=== PATIENT | female | born 1985 | race Caucasian/White ===

== ENCOUNTER 2017-02-16 16:39 | Emergency (ER) | payer MEDICAID ==
--- NOTE | 2017-02-16 17:37 | RAD ---
THREE VIEWS LEFT FOOT: History: Left foot pain, patient injured left foot two months ago. Technique: AP, lateral and oblique views obtained. FINDINGS: Images demonstrate no evidence of left foot fracture, subluxations, or bony lesions. IMPRESSION: Normal three views left foot. POS: [facility]
== END 2017-02-16 17:40 | disposition home or self-care (01) ==
LOC: NAV ERS 16:39
DX: S93.602A Unspecified sprain of left foot, initial encounter (principal); E66.9 Obesity, unspecified; X50.9XXA Other and unspecified overexertion or strenuous movements or postures, initial encounter

== ENCOUNTER 2017-07-20 20:49 | Emergency (ER) | payer OTHER, SELFPAY ==
[2017-07-20] MEDS ORDERED: Ketorolac Tromethamine 60 MG/2 ML VIAL ONE (21:08)
[2017-07-20] MEDS ORDERED: Acetaminophen 500 MG TAB ONE (21:11)
[2017-07-20] MEDS ORDERED: AMOXicillin 250 MG CAP ONE (21:15)
== END 2017-07-20 21:27 | disposition home or self-care (01) ==
LOC: NAV ERS 20:49
DX: K02.9 Dental caries, unspecified (principal)
CPT/HCPCS: 96372; J1885

== ENCOUNTER 2017-10-14 13:42 | Emergency (ER) | payer SELFPAY | END 2017-10-14 14:14 | disposition home or self-care (01) | LOC: NAV ERS 13:42 | DX: S61.431A Puncture wound without foreign body of right hand, initial encounter (principal); I10 Essential (primary) hypertension; W26.8XXA Contact with other sharp object(s), not elsewhere classified, initial encounter | CPT/HCPCS: 99283 ==